=== PATIENT | female | born 2000 | race Caucasian/White ===

== ENCOUNTER 2020-07-04 08:58 | Outpatient (REF) | payer OTHER, SELFPAY ==
--- NOTE | ~2020-07-04 | XR_ITS ---
EXAMINATION: XR ANKLE, RIGHT XR ANKLE, LEFT CLINICAL INFORMATION: Pain. COMPARISON: Left ankle and foot radiographs dated 05/20/2018. TECHNIQUE: AP, mortise, and lateral views of the right and left ankle. FINDINGS: RIGHT ANKLE: No acute fracture or dislocation. The ankle mortise is maintained. No joint space narrowing or marginal osteophytes. No osseous erosion. No abnormal soft tissue calcification. No significant joint effusion. LEFT ANKLE: No acute fracture or dislocation. The ankle mortise is maintained. No joint space narrowing or marginal osteophytes. No osseous erosion. Small joint effusion. Lateral soft tissue swelling. XR/XR ankle RT min 3V IMPRESSION: Right ankle: Unremarkable examination. Left ankle: Lateral soft tissue swelling and small joint effusion without acute osseous abnormality.
--- NOTE | ~2020-07-04 | XR_ITS ---
EXAMINATION: XR ANKLE, RIGHT XR ANKLE, LEFT CLINICAL INFORMATION: Pain. COMPARISON: Left ankle and foot radiographs dated 05/20/2018. TECHNIQUE: AP, mortise, and lateral views of the right and left ankle. FINDINGS: RIGHT ANKLE: No acute fracture or dislocation. The ankle mortise is maintained. No joint space narrowing or marginal osteophytes. No osseous erosion. No abnormal soft tissue calcification. No significant joint effusion. LEFT ANKLE: No acute fracture or dislocation. The ankle mortise is maintained. No joint space narrowing or marginal osteophytes. No osseous erosion. Small joint effusion. Lateral soft tissue swelling. XR/XR ankle LT min 3V IMPRESSION: Right ankle: Unremarkable examination. Left ankle: Lateral soft tissue swelling and small joint effusion without acute osseous abnormality.
== END 2020-07-04 08:59 | disposition home or self-care (01) ==
LOC: HO.XRAY 08:58
PROVIDERS: PCP Pediatrics; Visit Provider Physician Assistant
DX: M25.579 Pain in unspecified ankle and joints of unspecified foot (principal)
CPT/HCPCS: 73610

== ENCOUNTER → 2020-07-22 13:51 | Outpatient (BNVA) | payer OTHER, SELFPAY | PROVIDERS: PCP Pediatrics; Visit Provider Physician Assistant ==

== ENCOUNTER 2020-08-05 15:48 | Outpatient (REF) | payer OTHER, SELFPAY ==
--- NOTE | ~2020-08-05 | MR_ITS ---
EXAMINATION: MR LEFT ANKLE WITHOUT CONTRAST CLINICAL INFORMATION: Ankle pain. Patient reports sprain ankle. COMPARISON: X-ray the left ankle June 2020. TECHNIQUE: MRI left ankle was performed without contrast high-field MRI scanner. FINDINGS: Subcutaneous Soft Tissues: Normal. Anterior Talofibular Ligament: Mild thickening of the anterior talofibular ligament compatible with remote partial tear. Deltoid: Mild increased signal in the anterior deep fibers of the deltoid ligament along with mild edema within the talus at the level of the deltoid attachment. This likely reflects minimal partial tearing of the ligament with associated reactive edema in the bone or bone contusion versus reactive edema extending along the ligament. No measurable defect or ligament retraction. Remaining ligaments intact. Bone and Articular Cartilage: Edema within the medial aspect of the talus at the head neck junction and ligament attachment as above. Minimal edema within the posterior dome of the talus compatible with a mild bone contusion. The overlying articular cartilage intact. Joint fluid volume normal. Remaining bone and joints normal. Muscles and Tendons: Normal. Plantar Fascia: Normal. Neurovascular Structures: Normal. MR/MR ankle LT wo con IMPRESSION: Remote partial tear of the anterior talofibular ligament resulting in some ligament thickening. Mild abnormality of the deep fibers of the deltoid ligament extending to the talar attachment compatible with either minimal partial tearing of the deltoid and reactive edema in the bone or bone contusion and reactive edema extending along the ligament. Minimal marrow edema in the dome of the talus compatible with mild bone contusion. No articular abnormality.
== END 2020-08-05 15:49 | disposition home or self-care (01) ==
LOC: HO.MRI 15:48
PROVIDERS: Visit Provider Physician Assistant
DX: M25.572 Pain in left ankle and joints of left foot (principal)
CPT/HCPCS: 73721

== ENCOUNTER → 2020-09-08 14:53 | Outpatient (BNVA) | payer OTHER, SELFPAY | PROVIDERS: Visit Provider Physician Assistant ==

== ENCOUNTER 2022-08-18 13:51 | Outpatient (REF) | payer OTHER, SELFPAY ==
[2022-08-18 14:09] LABS: MANUAL DIFF FLAG NO
[2022-08-18 16:03] LABS: Basophils Percent Auto 0.4 % (0-2); Eosinophils Percent Auto 0.4 % (0-4); Hematocrit 39.3 % (37.0-47.0); Hemoglobin 13.7 g/dl (12.0-16.0); Imm Gran Abs Auto 0.01 X10*3/uL (0.00-0.03); Imm Gran Pct Auto 0.1 % (0.0-0.4); Lymphocytes Absolute Auto 1.2 X10*3/uL (1.2-4.9); Lymphocytes Percent Auto 15.6 % (20-40); Mean Corpuscular HGB Conc 34.9 g/dl (31.0-35.0); Mean Corpuscular Hemoglobin 32.5 pg (27.0-33.0); Mean Corpuscular Volume 93.3 fL (80.0-98.0); Mean Platelet Volume 10.1 fL (9.4-12.3); Monocytes Absolute Auto 0.5 X10*3/uL (0.1-1.2); Monocytes Percent Auto 6.8 % (2-11); Neutrophils Percent Auto 76.7 % (45-73); Platelet Count 346 X10*3/uL (160-400); Red Blood Count 4.21 X10*6/uL (4.20-5.50); Red Cell Distribution Width 11.6 % (11.0-16.0); White Blood Count 7.8 X10*3/uL (4.8-10.8)
[2022-08-18 16:36] LABS: Alanine Aminotransferase 11 U/L (0-31); Albumin Level 4.4 g/dL (3.5-5.0); Alkaline Phosphatase 66 U/L (39-117); Anion Gap 14 (12-20); Aspartate Amino Transferase 16 U/L (5-31); Bilirubin Direct 0.2 mg/dL (0.0-0.5); Bilirubin Total 0.5 mg/dL (0.0-1.0); Blood Urea Nitrogen 12 mg/dL (9-16); C Reactive Protein < 0.10 mg/dL (< or = 0.50); Calcium 9.6 mg/dL (8.4-10.2); Carbon Dioxide 24 mmol/L (22-29); Chloride 105 mmol/L (96-108); Estimated Glomerular Filt Rate > 60; Glucose Random 72 mg/dL (60-115); Potassium 4.2 mmol/L (3.3-5.1); Sodium 139 mmol/L (135-145); Total Protein 6.8 g/dL (6.5-8.0)
[2022-08-18 16:52] LABS: TSH reflex Free T4 0.95 uIU/mL (0.32-4.0)
[2022-08-18 16:57] LABS: Erythrocyte Sedimentation Rate 7 MM/HR (0-20)
[2022-08-20 13:33] LABS: Gliadin Deamidated IgA Ab <1.0 U/mL; Gliadin Deamidated IgG Ab <1.0 U/mL; Transglutaminase Ab IgG <1.0 U/mL; Transglutaminase IgA <1.0 U/mL
[2022-08-20 15:33] LABS: Immunoglobulin A 175 mg/dL (47-310)
[2022-08-25 15:12] LABS: Endomysial IgA Antibody Negative (Negative)
== END 2022-08-18 13:52 | disposition home or self-care (01) ==
LOC: HO.LAB 13:51
PROVIDERS: Visit Provider Internal Medicine
DX: R14.0 Abdominal distension (gaseous) (principal); R10.84 Generalized abdominal pain; K59.00 Constipation, unspecified
CPT/HCPCS: 36415; 80048; 80076; 82784; 84443; 85025; 85652; 86140; 86231; 86258; 86364

== ENCOUNTER 2022-08-25 09:08 | Outpatient (REF) | payer OTHER, SELFPAY ==
--- NOTE | ~2022-08-25 | US_ITS ---
EXAMINATION: US ABDOMEN COMPLETE CLINICAL INFORMATION: Generalized abdominal pain and bloating. COMPARISON: None available. TECHNIQUE: Real-time imaging of the abdominal viscera. FINDINGS: PANCREAS: Normal. ABDOMINAL AORTA: The proximal, mid, and distal segments are normal in caliber. INFERIOR VENA CAVA: Visualized portions are normal. LIVER: Normal. The liver is normal in size. The liver contour is normal. Parenchymal echogenicity is normal. No focal hepatic lesion. There is no intrahepatic biliary duct dilatation seen. GALLBLADDER: Possible tiny gallstone near the neck of the gallbladder without gallbladder distention, mural edema, pericholecystic fluid, wall thickening, or tenderness. COMMON BILE DUCT: Normal in caliber measuring 0.3 cm in diameter. RIGHT KIDNEY: Normal. No hydronephrosis. No renal calculi or focal parenchymal lesions. The kidney measures 10.4 cm in maximum dimension. LEFT KIDNEY: Normal. No hydronephrosis. No renal calculi or focal parenchymal lesions. The kidney measures 10.3 cm in maximum dimension. SPLEEN: Normal. The spleen measures 10.3 cm in maximum dimension. FREE FLUID: None. US/US abdomen complete IMPRESSION: Possible tiny gallstone without evidence of cholecystitis. Otherwise normal abdominal ultrasound.
== END 2022-08-25 09:09 | disposition home or self-care (01) ==
LOC: HO.HMGCX 09:08
PROVIDERS: Visit Provider Internal Medicine
DX: R10.84 Generalized abdominal pain (principal); R14.0 Abdominal distension (gaseous)
CPT/HCPCS: 76700

== ENCOUNTER 2023-01-11 11:18 | Outpatient (AMB) | payer OTHER, SELFPAY ==
--- NOTE | 2023-01-11 11:35 | MHC.OFFWIV ---
Intake Vital Signs 01/11/23 11:48 Height 5 ft 2 in Weight 149 lb BMI 27.2 BP 100/54 L Blood Pressure Location Rt brachial Position Sitting Pulse 57 Pulse Source Pulse Oximeter Temp 97.8 F Temp Source Temporal Artery Scan Pulse Oximetry (%) 100 Oxygen Delivery Method Room Air Intake Visit Reasons: EST/extreme tiredness/[phone] Intake Note: Pt is here requesting to be tested for flu and strep due to her coming out positive. Patient Tobacco Use Status: Never used Tobacco Allergies No Known Allergies [No Known Allergies*] Allergy (Unverified 01/11/23 11:35) Do you need a note to return to daycare/school/sports/work: No HPI EST/extreme tiredness/[phone] HPI Details Patient presents today following exposure to both flu and strep. She reports that over the last couple days she has felt fatigued, and woke up this morning with a sore throat. Denies any fever or chills. She is moving to [place] at the end of this week, and is afraid she came in close contact with these illnesses. [facility] Social History Patient Tobacco Use Status: Never used Tobacco Current occupational status: student Review of Systems Const All systems reviewed & are unremarkable except as noted in HPI and below Physical Exam Vital Signs: Last Vital Signs Temp 97.8 F 01/11/23 11:48 Pulse 57 01/11/23 11:48 BP 100/54 L 01/11/23 11:48 Pulse Ox 100 01/11/23 11:48 Oxygen Delivery Method Room Air 01/11/23 11:48 BMI result Body Mass Index 27.2 Const General: cooperative, healthy appearing, comfortable and no acute distress HEENT Head: Yes normal to inspection Ears: hearing grossly normal bilaterally General nose exam: Normal external nose present and Normal nares present Face and sinus: Yes normal facial exam Mouth: Normal oral and palatal mucosa present and moist mucous membranes Throat: Yes tonsils normal (Mild tonsillar hypertrophy) and Yes posterior oropharynx abnormal (Erythematous) Neck Neck: Yes no lymphadenopathy Resp Effort & Inspection: normal respiratory effort and able to speak in complete sentences Auscultation: clear to auscultation bilaterally Cardio Jugular venous distension: no JVD Palpation: normal PMI Rate: regular rate Rhythm: regular rhythm Skin General skin exam: no rashes or lesions noted Extrem General: Yes capillary refill normal and Yes no clubbing, cyanosis or edema Psych Appearance: grossly normal Mental Status: mental status grossly normal Speech and movement: Normal speech and movement present Results AMB Rapid Strep AMB Rapid Strep Negative Last Edit by Celia Clayton CMA on 01/11/23 11:54 Assessment & Plan Assessment & Plan (1) Exposure to the flu: Code(s): Z20.828 - Contact with and (suspected) exposure to other viral communicable diseases Plan: Patient is beginning to feel sick symptoms, and sore throat following close exposure to known positive strep and positive flu contact. Viral swab obtained in the office. She will be notified of these results once these are available. Rapid strep in the office was negative, however given close exposure to known positive case, and exam today, I will send antibiotics to her pharmacy. She is going to rest, increase hydration and vitamin intake, and take Tylenol/ibuprofen as needed, and if throat symptoms worsen, she is going to start antibiotics. She can return to the clinic or see PCP for further evaluation if she does not improve with treatment. She verbalizes understanding and agrees to plan. (2) Fatigue: Code(s): R53.83 - Other fatigue Qualifiers: Fatigue type: other Qualified Code(s): R53.83 - Other fatigue Orders: Orders SARS-CoV2/FLU/RSV Today R53.83 - Other fatigue, Z20.828 - Contact with and (suspected) exposure to other viral communicable diseases [facility] AMB Rapid Strep Screen Today Z13.9 - Encounter for screening, unspecified Robb Fine MD Medications: New penicillin V potassium 500 mg PO BID 20 tabs 0RF 10 days J02.0 - Streptococcal pharyngitis [facility] Coding Level of Care Code Est Pt Level 3 (08396) Diagnoses Exposure to the flu Z20.82 Fatigue R53.83 Fatigue type: other
[2023-01-11 11:48] VITALS: BP 100/54; PULSE 57; TEMP 36.6; O2SAT 100; BMI 27.2
== END 2023-01-11 12:06 | disposition home or self-care (01) ==
PROVIDERS: Visit Provider Nurse Practitioner Family
DX: R53.83 Other fatigue (principal); Z20.828 Contact with and (suspected) exposure to other viral communicable diseases; J02.9 Acute pharyngitis, unspecified
CPT/HCPCS: 87880; 99213

== ENCOUNTER 2023-01-11 11:59 | Outpatient (REF) | payer OTHER, SELFPAY ==
[2023-01-11 15:31] LABS: Influenza A PCR NEGATIVE (Negative); Influenza B PCR NEGATIVE (Negative); Resp Syncy Virus RNA Qual PCR NEGATIVE (Negative); SARS COV2 PCR INHOUSE NEGATIVE (Negative)
== END 2023-01-11 12:00 | disposition home or self-care (01) ==
LOC: HO.LAB 11:59
PROVIDERS: Visit Provider Nurse Practitioner Family
DX: Z20.822 Contact with and (suspected) exposure to COVID-19 (principal); R53.83 Other fatigue
CPT/HCPCS: 0241U